=== PATIENT | female | born 1955 | race Caucasian/White ===

== ENCOUNTER 2017-07-27 09:42 | Inpatient (IN) | payer OTHER ==
[~2017-07-27] VITALS: Ht 162.6 cm; Wt 73.3 kg
[2017-07-27] MEDS ORDERED: SODIUM CHLORIDE 0.9% 1,000 ML IV ONE ×2 (10:20→11:45)
[2017-07-27] MEDS ORDERED: SODIUM CHLORIDE FLUSH 10ML SYR IVF ONE (10:30)
[2017-07-27] MEDS ORDERED: SODIUM CHLORIDE 0.9% 1,000ML IVBOLUS ONE (10:30)
[2017-07-27 10:35] LABS: HEMATOCRIT 42.1 % (34.6-47.8); HEMOGLOBIN 14.6 g/dL (11.7-16.4)
[2017-07-27 10:47] LABS: ASPARTATE AMINO TRANSFERASE 62 U/L (15-37); BLOOD UREA NITROGEN 12 mg/dL (7-18)
[2017-07-27] MEDS ORDERED: CEFTRIAXONE PMX 1GM/50ML 50 ML ONE (11:26)
[2017-07-27] MEDS ORDERED: ACETAMINOPHEN 500 MG TABLET ONE (11:26)
[2017-07-27] MEDS ORDERED: CEFTRIAXONE PMX 1GM/50ML 50 ML IVPB ONE (11:30)
[2017-07-27] MEDS ORDERED: AZITHROMYCIN 500 MG in SODIUM CHLORIDE 0.9% 250 ML IVPB ONE (11:30)
[2017-07-27] MEDS ORDERED: ONDANSETRON ODT 4 MG PO PRN (12:00)
[2017-07-27] MEDS ORDERED: GUAIFENESIN/DM 200-20MG, 10ML UDC PO PRN (12:00)
[2017-07-27] MEDS ORDERED: ENALAPRILAT 1.25 MG/ML, 2ML IVPush PRN (12:00)
[2017-07-27] MEDS ORDERED: SODIUM CHLORIDE FLUSH 10ML SYR IVF PRN (12:00)
[2017-07-27] MEDS ORDERED: ACETAMINOPHEN 325 MG TABLET PO PRN (12:00)
[2017-07-27] MEDS ORDERED: ACETAMINOPHEN 500 MG TABLET PO ONE (12:00)
[2017-07-27] MEDS: ENOXAPARIN 40 MG/0.4 ML SQ SCH ×2 (12:00→17:04)
[2017-07-27] MEDS ORDERED: DOCUSATE 100 MG CAPSULE PO PRN (12:00)
[2017-07-27] MEDS ORDERED: ZOLPIDEM 5MG TABLET PO PRN (12:00)
[2017-07-27] MEDS ORDERED: ALBUTEROL SULFATE 2.5 MG/3 ML NPPB PRN (12:30)
[2017-07-27] MEDS: OXYcodone IR 5MG TABLET PO PRN ×2 (16:02→21:31)
[2017-07-27] MEDS: NS + 20MEQ KCL 1,000 ML IV SCH ×2 (17:04→21:15)
[2017-07-27 19:59] VITALS: BP 118/71
[2017-07-28 02:38] VITALS: BP 120/69
[2017-07-28] MEDS: NS + 20MEQ KCL 1,000 ML IV SCH (02:41)
[2017-07-28 04:56] LABS: HEMATOCRIT 36.1 % (34.6-47.8); HEMOGLOBIN 12.6 g/dL (11.7-16.4); WHITE BLOOD COUNT 17.3 x10^3/uL (3.4-10)
[2017-07-28 05:03] LABS: BLOOD UREA NITROGEN 9 mg/dL (7-18)
[2017-07-28 05:06] LABS: ASPARTATE AMINO TRANSFERASE 44 U/L (15-37)
[2017-07-28] MEDS ORDERED: OMEPRAZOLE 20 MG CAPSULE.DR PO SCH (07:30)
[2017-07-28] MEDS ORDERED: CEFD300C37 PO ×2 (08:13→10:35)
[2017-07-28] MEDS ORDERED: AZIT250T89 PO (08:14)
[2017-07-28 08:54] VITALS: BP 116/70
[2017-07-28] MEDS ORDERED: AZIT250T PO (10:36)
[2017-07-28] MEDS ORDERED: CEFTRIAXONE PMX 2GM/50ML 50 ML IV SCH (12:00)
[2017-07-28] MEDS ORDERED: AZITHROMYCIN 500 MG in SODIUM CHLORIDE 0.9% 250 ML IV SCH (12:00)
== END 2017-07-28 10:45 | disposition home or self-care (01) | DRG 871 ==
LOC: ED 10:43 → EDIP 11:45 → 4NOR 13:48 → DCLOUNGE 07-28 10:31
PROVIDERS: ADMIT Family Medicine; ATTEND Family Medicine
DX: A41.9 Sepsis, unspecified organism (principal); J15.9 Unspecified bacterial pneumonia; E87.1 Hypo-osmolality and hyponatremia; F17.200 Nicotine dependence, unspecified, uncomplicated; I10 Essential (primary) hypertension; E87.6 Hypokalemia; K21.9 Gastro-esophageal reflux disease without esophagitis; M79.1 Myalgia; M10.9 Gout, unspecified; Z90.710 Acquired absence of both cervix and uterus; Z88.0 Allergy status to penicillin
CPT/HCPCS: 36415; 71020; 80053; 83605; 83880; 84484; 85025; 85379; 87040; 93005; 96361; 96365; 96367; J0456; J0696; J1650; J3480; Q0162; J7030; J7050